=== PATIENT | male | born 1965 | race Caucasian/White ===

== ENCOUNTER 2017-12-02 08:23 | Emergency (ER) | payer OTHER, BC ==
[2017-12-02] MEDS ORDERED: Sodium Chloride 0.9% 10 ML Syringe FLUSH PRN (08:53)
[2017-12-02] MEDS ORDERED: Sodium Chloride 0.9% 1,000 ML IV SCH (09:00)
--- NOTE | 2017-12-02 09:13 | EDM.PDOC ---
ED HPI GENERAL MEDICAL PROBLEM - General Chief Complaint: Headache Stated Complaint: DIZZY, SHOULDER PAIN Time Seen by Provider: 12/02/17 08:38 Source of Information: Reports: Patient, RN Notes Reviewed - History of Present Illness INITIAL COMMENTS - FREE TEXT/NARRATIVE: 52-year-old male became very dizzy, lightheaded while at work a short time ago. 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 He stated his vision started to get blurry. With some rest and time this did get better. However he also has some mild achiness of his left shoulder and left side of his face. He denies anterior chest pain. Is not short of breath. Did have some mild nausea but that is gone. However he has also been under a lot of stress with the recent separation or divorce from his . He has not been sleeping well at night. Is not been eating or drinking well. He states that he often "gags when he eats". When this morning, he did vomit once. He also did have at least one episode of diarrhea this morning. No abdominal pain or cramping at this time. Left Shoulder Pain Score (Numeric/FACES): 10 - Related Data Allergies Allergy/AdvReac Type Severity Reaction Status Date / Time No Known Allergies Allergy Verified 12/02/17 08:31 Home Meds: Home Meds Cyanocobalamin (Vitamin B-12) [Vitamin B12] 2,500 mcg PO DAILY 12/02/17 [History ] Losartan [Cozaar] 100 mg PO DAILY 12/02/17 [History] Multivitamin [Multivitamins] 1 each PO DAILY 12/02/17 [History] Potassium Chloride 20 meq PO DAILY #30 tablet.er 12/02/17 [Rx] amLODIPine Besylate [Amlodipine Besylate] 10 mg PO DAILY 12/02/17 [History] hydroCHLOROthiazide [Hydrochlorothiazide] 25 mg PO DAILY 12/02/17 [History] Past Medical History Cardiovascular History: Reports: High Cholesterol, Hypertension - Past Surgical History Musculoskeletal Surgical History: Reports: Shoulder Surgery Social & Family History - Tobacco Use Smoking Status *Q: Never Smoker - Recreational Drug Use Recreational Drug Use: No ED ROS GENERAL - Review of Systems Review Of Systems: See Below Constitutional: Denies: Fever, Chills, Diaphoresis HEENT: Reports: Vision Change (Vision became blurry, now back to normal). Denies: Sinus Problem, Throat Pain Respiratory: Denies: Shortness of Breath Cardiovascular: Denies: Chest Pain GI/Abdominal: Reports: Diarrhea, Decreased Appetite, Nausea, Vomiting. Denies: Abdominal Pain Musculoskeletal: Reports: Shoulder Pain. Denies: Neck Pain, Arm Pain, Back Pain Skin: Reports: No Symptoms Neurological: Reports: Dizziness (Now better) ED EXAM, DIZZINESS - Physical Exam Exam: See Below General Appearance: Alert, Mild Distress Ears: Normal External Exam, Normal Canal, Normal TMs Nose: Normal Inspection Throat/Mouth: Normal Inspection, Normal Oropharynx Head Exam: Atraumatic. No: Facial Swelling Respiratory/Chest: No Respiratory Distress, Lungs Clear, Normal Breath Sounds Cardiovascular: Regular Rate, Rhythm GI/Abdominal: Soft, Non-Tender. No: Guarding, Rebound Neurological: Alert, No Motor/Sensory Deficits Back Exam: No: CVA Tenderness (L), CVA Tenderness (R) Extremities: Normal Inspection. No: Pedal Edema, Leg Pain Skin Exam: Warm, Dry, Normal Color EKG INTERPRETATION EKG Date: 12/02/17 Rhythm: NSR Theresa: Normal P-Wave: Present QRS: Normal ST-T: Other (T-wave inversion in lead 3) Course - Vital Signs Last Recorded V/S: Last Vital Signs Temp 97.6 F 12/02/17 08:28 Pulse 93 12/02/17 08:28 Resp 16 12/02/17 08:28 BP 108/58 L 12/02/17 08:28 Pulse Ox 96 12/02/17 08:28 - Orders/Labs/Meds Orders: Active Orders 24 hr Category Date Time Status EKG 12 Lead [EKG Documentation Completion] [RC] STAT Care 12/02/17 08:53 Active Peripheral IV Care [RC] . DIRECTED Care 12/02/17 08:53 Active Peripheral IV Insertion Pediatric [OM.PC] Routine Oth 12/02/17 08:53 Ordered Labs: Laboratory Tests 12/02/17 12/02/17 Range/Units 09:00 09:00 WBC 8.49 (4.23-9.07) K/mm3 RBC 5.15 (4.63-6.08) M/mm3 Hgb 15.1 (13.7-17.5) gm/L Hct 42.1 (40.1-51.0) % MCV 81.7 (79.0-92.2) fl MCH 29.3 (25.7-32.2) pg MCHC 35.9 H (32.2-35.5) g/dl RDW Std Deviation 44.6 H (35.1-43.9) fL Plt Count 341 H (163-337) K/mm3 MPV 9.7 (9.4-12.3) fl Neut % (Auto) 74.9 H (34.0-67.9) % Lymph % (Auto) 16.3 L (21.8-53.1) % [place] % (Auto) 8.2 (5.3-12.2) % Eos % (Auto) 0.4 L (0.8-7.0) Baso % (Auto) 0.1 (0.1-1.2) % Neut # (Auto) 6.36 H (1.78-5.38) K/mm3 Lymph # (Auto) 1.38 (1.32-3.57) K/mm3 [place] # (Auto) 0.70 (0.30-0.82) K/mm3 Eos # (Auto) 0.03 L (0.04-0.54) K/mm3 Baso # (Auto) 0.01 (0.01-0.08) K/mm3 Sodium 132 L (136-145) mEq/L Potassium 2.6 L (3.5-5.1) mEq/L Chloride 93 L (98-107) mEq/L Carbon Dioxide 29 (21-32) mEq/L Anion Gap 12.6 (5-15) BUN 18 (7-18) mg/dL Creatinine 1.6 H (0.7-1.3) mg/dL Est Cr Clr Drug Dosing 55.76 mL/min Estimated GFR (MDRD) 46 (>60) mL/min BUN/Creatinine Ratio 11.3 L (14-18) Glucose 172 H (74-106) mg/dL Calcium 9.3 (8.5-10.1) mg/dL Total Bilirubin 1.5 H (0.2-1.0) mg/dL AST 28 (15-37) U/L ALT 49 (16-63) U/L Alkaline Phosphatase 74 (46-116) U/L Troponin I < 0.017 (0.00-0.056) ng/mL Total Protein 7.3 (6.4-8.2) g/dl Albumin 4.0 (3.4-5.0) g/dl Globulin 3.3 gm/dL Albumin/Globulin Ratio 1.2 (1-2) Meds: Medications Discontinued Medications Generic Name Dose Route Start Last Admin Trade Name Freq PRN Reason Stop Dose Admin Sodium Chloride 1,000 mls @ 999 mls/hr 12/02/17 09:00 12/02/17 09:05 Normal Saline IV 999 mls/hr ONETIME SANTA Administration Potassium Chloride 40 meq 12/02/17 10:16 12/02/17 10:29 Klor-Con M20 PO 12/02/17 10:17 40 meq ONETIME ONE Administration Sodium Chloride 10 ml 12/02/17 08:53 12/02/17 09:00 Saline Flush FLUSH 10 ml ASDIRECTED PRN Administration Keep Vein Open - Re-Assessments/Exams Free Text/Narrative Re-Assessment/Exam: 12/02/17 11:13 Potassium did come back low at 2.6. We did give him 40 mEq oral. EKG was normal. Troponin was normal. He feels better after a liter of IV fluid. Has been running relatively low blood pressures while here in the ED primarily in the 105 range systolic. I am going to have him hold the hydrochlorothiazide for at least a few days, longer if needed, discharge instructions as documented. Departure - Departure Time of Disposition: 10:18 Disposition: Home, Self-Care 01 Condition: Fair Clinical Impression: Near syncope, Hypokalemia Hypotension Qualifiers: Hypotension type: unspecified hypotension type Qualified Code(s): I95.9 - Hypotension, unspecified - Discharge Information Prescriptions: Potassium Chloride 20 meq PO DAILY #30 tablet.er Instructions: Hypotension, [id number], Hypokalemia, Near-Syncope, Easy-to- Read Referrals: PCP,Not In Area [Primary Care Provider] - Forms: ED Department Discharge Additional Instructions: Your blood pressures has been running relatively low while here in the ED, stop the hydrochlorothiazide for now. You may continue the amlodipine and losartan as prescribed. Try check your blood pressure once or twice daily and when it gets up into the 130 range consistently than consider restarting the hydrochlorothiazide but take one half tab daily instead of the full 25 mg previously prescribed. Your potassium today was very low at 2.6. Potassium supplement 10 mEq daily as prescribed, continue to eat bananas, other fruit and vegetables. Potatoes also are a good source of potassium but also be careful not to ingest too many carbs on a daily basis. Follow-up with your regular medical provider in about 2 weeks for recheck. Call for appointment. Return to ED as needed if symptoms worsening in any way. - My Orders Last 24 Hours: My Active Orders 12/02/17 08:53 EKG 12 Lead [EKG Documentation Completion] [RC] STAT Peripheral IV Care [RC] . DIRECTED Peripheral IV Insertion Pediatric [OM.PC] Routine - Assessment/Plan Last 24 Hours: My Active Orders 12/02/17 08:53 EKG 12 Lead [EKG Documentation Completion] [RC] STAT Peripheral IV Care [RC] . DIRECTED Peripheral IV Insertion Pediatric [OM.PC] Routine
[2017-12-02] MEDS ORDERED: Potassium Chloride 20 MEQ Tab.ER PO ONE (10:16)
== END 2017-12-02 10:34 | disposition home or self-care (01) ==
LOC: JD.ED 08:23
DX: I95.9 Hypotension, unspecified (principal); I10 Essential (primary) hypertension; E78.00 Pure hypercholesterolemia, unspecified; Z79.899 Other long term (current) drug therapy
CPT/HCPCS: 36415; 80053; 84484; 85025; 93005; 96360; 99284; A9270; J7040; J7050; 93010